=== PATIENT | male | born 1985 | race Caucasian/White ===

== ENCOUNTER → 2017-03-29 | Outpatient (CLI) | payer OTHER ==
--- NOTE | 2017-03-29 16:42 | Diagnostic Imaging Report ---
PROCEDURE: MRI left joint lower extremity without contrast. TECHNIQUE: Multiplanar, multisequence non contrast-enhanced MRI of the left ankle was accomplished. INDICATION: Ankle pain after inversion injury obtained when stepping off of a truck one week ago. Persistent pain and swelling along the lateral aspect of the ankle. COMPARISONS: None available. FINDINGS: TENDONS: Distal Achilles tendon is normal. There is a partial split longitudinal tear of the peroneus brevis at the level of the lateral malleolus. The distal insertional portion of the peroneus brevis on the base of the fifth metatarsal is intact. Peroneus longus is normal. Mild tenosynovitis of the common extensor sheath. There is no subluxation of the peroneal tendons to indicate peroneal retinaculum injury. The posterior tibialis, flexor digitorum longus, and flexor hallucis longus tendons are intact. The anterior tibial, extensor hallucis longus, and extensor digitorum longus tendons are intact. LIGAMENTS: The anterior and posterior tibiofibular ligaments are intact. There is complete rupture of the anterior talofibular ligament. The calcaneofibular ligament is abnormally thickened and probably discontiguous near its calcaneal insertion, indicative of high-grade sprain or complete rupture. Mild edema-like signal in the posterior talofibular ligament may represent low-grade sprain. Posterior talofibular ligament remains intact. The medial deltoid ligamentous structures are intact. BONES AND CARTILAGE: No osteochondral lesion of the talar dome. Amorphous bone marrow edema in the plantar aspect of the talar head and neck likely represents bone contusion. No discrete associated fracture line is present. The articular cartilage of the tibiotalar and posterior subtalar joints are normal. SOFT TISSUES: Small ankle joint effusion with mild synovitis is likely reactive in nature from trauma. There is a heterogeneous T2 and T1 hyperintense fluid collection in the anterior and lateral subcutaneous tissues at the level of the lateral malleolus, which is most compatible with a hematoma. This measures approximately 3.0 x 1.8 cm, and there is surrounding subcutaneous edema and soft tissue swelling. Plantar fascia is normal. No abnormal inflammation of the sinus tarsi. No abnormal mass effect in the tarsal tunnel. IMPRESSION: 1. Injury of the lateral collateral ligamentous complex includes complete rupture of the anterior talofibular and calcaneofibular ligaments. Posterior talofibular ligament remains intact. 2. Small region of osseous contusion involving the plantar aspect of the talar head and neck. No associated fracture lines are seen. 3. There is a soft tissue hematoma in the anterolateral aspect of the ankle, near the level of the anterior talofibular ligament tear. This hematoma measures approximately 3.0 x 1.8 cm and has surrounding edema and soft tissue swelling. 4. Split longitudinal tear of the peroneus brevis at the level of the lateral malleolus with associated tenosynovitis. No evidence of peroneal retinacular disruption. 5. Small ankle joint effusion. Dictated by: Dictated on workstation # [id number]
== END ==
LOC: RAD 11:18
PROVIDERS: ATTEND Orthopaedic Surgery
DX: S93.492A Sprain of other ligament of left ankle, initial encounter (principal); M25.472 Effusion, left ankle; X50.9XXA Other and unspecified overexertion or strenuous movements or postures, initial encounter; Y99.8 Other external cause status
CPT/HCPCS: 73721

== ENCOUNTER → 2017-04-26 | Outpatient (CLI) | payer OTHER ==
[~2017-04-26] MED LIST: CATHETER FLUSH 10 ML SYR IV PRN
[2017-04-26] MEDS: NS 100 ML (IVPB) BAG IV ONE (07:56)
[2017-04-26] MEDS: IOHEXOL 350 MG/ML 100 ML (OMNIPAQUE 350) VIAL IV ONE (07:56)
--- NOTE | 2017-04-26 12:34 | Diagnostic Imaging Report ---
PROCEDURE: CT abdomen and pelvis with and without contrast. TECHNIQUE: Precontrast acquisitions were acquired through the abdomen and pelvis. Multiple contiguous axial images were obtained through the abdomen and pelvis after the administration of intravenous contrast. INDICATION: Severe hypertension. 100 mL of Omnipaque-350 is administered intravenously. FINDINGS: The lung bases appear clear. The liver, the gallbladder, the pancreas, and the adrenal glands appear unremarkable. The spleen is mildly enlarged measuring 16 x 5.4 x 12.8 cm. The kidneys demonstrate lobulated contour with areas of thinning of the parenchyma bilaterally. There is also evidence of calyceal diverticula on the right side which is probably secondary to overlying parenchymal scarring. This is likely sequela of prior recurrent UTIs. There is no hydronephrosis. The unenhanced phase demonstrates no stones. The renal arteries are patent. No atherosclerotic plaque or evidence of stenosis. There are multiple peripheral parenchymal foci of low attenuation measuring around 1 cm each, or generally too small to characterize with no obvious enhancement, favored to be related to renal cysts. Although there is no hydronephrosis and the ureter caliber proximally is normal on the left side, the [id number] left ureter is moderately dilated. There is normal symmetric enhancement and excretion however with contrast appearing to pass into the bladder through the left UVJ. Etiology of this dilatation is uncertain and could be related to reflux. No urinary bladder or ureteric stones. The abdominal aorta is normal in caliber. No significant atherosclerotic changes are noted. The para-aortic lymph node station demonstrates no adenopathy. There is no significant fluid collection or free fluid in the abdomen or pelvis seen. No bowel obstruction. The osseous structures appear grossly unremarkable. IMPRESSION: 1. Multiple bilateral renal cortical scarring likely sequelae of recurrent UTIs. 2. Moderate dilatation of the [id number] left ureter without evidence of obstruction, possibly secondary to vesicoureteral reflux. Dictated by: Dictated on workstation # [id number]
== END ==
LOC: RAD 07:17
PROVIDERS: ATTEND Family Medicine
DX: I10 Essential (primary) hypertension (principal); N28.82 Megaloureter
CPT/HCPCS: 74178